=== PATIENT | female | born 1975 | race Two or more races ===

== ENCOUNTER 2024-08-05 14:49 | Emergency (ER) | payer OTHER ==
[~2024-08-05] VITALS: Ht 172.7 cm; Wt 91.6 kg
[2024-08-05] MEDS ORDERED: RINGERS SOLUTION,LACTATED 1,000 ML IV STA (16:04)
[2024-08-05] MEDS ORDERED: MEPERIDINE HCL/PF 50 MG/ML VIAL IV STA (16:06)
[2024-08-05] MEDS ORDERED: PROMETHAZINE HCL 50 MG/ML AMPUL IM STA (16:07)
[2024-08-05 16:33] LABS: HEMATOCRIT 39.3 % (36.0-45.00); HEMOGLOBIN 13.2 g/dL (12.0-15.00); MEAN CELL VOLUME 91.9 fL (80.00-100.00); MEAN CORPUSCULAR HEMOGLOBIN 30.9 pg (27.00-32.0); MEAN CORPUSCULAR HGB CONC 33.6 g/dl (32.0-36.0); PLATELET COUNT 265 K/uL (150-450); RED BLOOD COUNT 4.28 M/uL (4.00-6.00); RED CELL DISTRIBUTION WIDTH 13.6 % (11.5-14.5)
[2024-08-05 16:55] LABS: ALBUMIN 3.6 gm/dL (3.4-5.0); BILIRUBIN TOTAL 0.85 mg/dL (0.3-1.2); BILIRUBIN,CONJUGATED 0.5 mg/dL (0.0-0.2); BILIRUBIN,UNCONJUGATED 0.35 mg/dL (0.0-0.6); CALCIUM 9.5 mg/dL (8.5-10.1); CREATININE SERUM 0.94 mg/dL (0.55-1.02); GFR 63.03; POTASSIUM 3.7 mEq/L (3.5-5.1); TOTAL PROTEIN 7.4 gm/dL (6.4-8.2)
[2024-08-05 16:59] LABS: URINE APPEARANCE Clear; URINE BILIRRUBIN Small (NEGATIVE); URINE BLOOD Negative; URINE COLOR Dark Yellow; URINE GLUCOSE Negative (NEGATIVE); URINE KETONE Trace (NEGATIVE); URINE LEUKOCYTE Negative; URINE NITRATE Negative; URINE PROTEIN Negative (NEGATIVE)
[2024-08-05 17:02] LABS: URINE BACTERIA 745.8 uL (0.0-1933); URINE RBC 10.2 uL (0.0-20.8); URINE WBC 18.2 uL (0.0-23.2)
[2024-08-05 17:02] LABS: PARTIAL THROMBOPLASTIN TIME 24.3 SECONDS (22.0-34.0); PROTHROMBIN TIME 10.4 SECONDS (9.0-11.5)
== END 2024-08-05 18:02 | disposition home or self-care (01) ==
LOC: ER 14:51
PROVIDERS: General Practice
DX: K80.18 Calculus of gallbladder with other cholecystitis without obstruction (principal); Z88.6 Allergy status to analgesic agent; Z91.010 Allergy to peanuts; Z91.013 Allergy to seafood

== ENCOUNTER 2024-08-29 08:30 | Day surgery (SDC) | payer OTHER ==
[2024-08-23 14:16] LABS: PH,URINE 7.5 (5.0-8.0); URINE APPEARANCE Clear; URINE BILIRRUBIN Negative (NEGATIVE); URINE BLOOD Negative; URINE COLOR Yellow; URINE GLUCOSE Negative (NEGATIVE); URINE KETONE Negative (NEGATIVE); URINE LEUKOCYTE Trace; URINE NITRATE Negative; URINE PROTEIN Negative (NEGATIVE)
[2024-08-23 14:17] LABS: URINE BACTERIA 143.5 uL (0.0-1933); URINE EPITHELIAL CELLS 7.2 uL (0.0-38.8); URINE RBC 4.5 uL (0.0-20.8); URINE WBC 18.2 uL (0.0-23.2)
[2024-08-29] MEDS ORDERED: ENOXAPARIN SODIUM 40 MG/0.4 ML SYRINGE SUBCUTANEO SCH (12:45)
[2024-08-29] MEDS ORDERED: CIPROFLOXACIN IN 5 % DEXTROSE 400 MG/200 ML PIGGYBAG IV SCH (12:45)
[2024-08-29] MEDS ORDERED: BUPIVACAINE HCL 30 ML VIAL IJ ONE (12:45)
[2024-08-29] MEDS ORDERED: VISTASEAL DUAL APPICATOR 1 EACH APPL TOP ONE (13:00)
[2024-08-29] MEDS ORDERED: THROMBIN,HU/FIBRINOGEN/CALCIUM 4 ML SYRINGE TOP ONE (13:00)
[2024-08-29] MEDS ORDERED: TYLENOL325 MG PO (13:40)
[2024-08-29] MEDS ORDERED: MIRALAX17 GM PO (13:41)
[2024-08-29] MEDS ORDERED: NEURONTIN800 MG PO (13:41)
[2024-08-29] MEDS ORDERED: MORPHINE SULFATE 4 MG/ML VIAL IV ONE (14:00)
== END 2024-08-29 14:45 | disposition home or self-care (01) ==
LOC: CIR.AMB 08:30
PROVIDERS: ATTEND Surgery
DX: K80.10 Calculus of gallbladder with chronic cholecystitis without obstruction (principal); K42.9 Umbilical hernia without obstruction or gangrene; Z88.6 Allergy status to analgesic agent; Z91.013 Allergy to seafood; Z91.010 Allergy to peanuts